=== PATIENT | male | born 1990 | race Caucasian/White ===

== ENCOUNTER 2021-01-27 23:55 | Emergency (ER) | payer OTHER, MEDICAID, SELFPAY ==
[2021-01-28] VITALS (7 sets, daily range): BP systolic 131–133; BP diastolic 81–82; PULSE 85–121; RESP 12–31; TEMP 36.6; O2SAT 95–99
--- NOTE | 2021-01-28 00:22 | ED_ITS ---
HPI - Overdose General Chief Complaint: Toxicology Problem Stated Complaint: OD si Time Seen by Provider: 01/28/21 00:01 History of Present Illness HPI Narrative: Patient is a 30-year-old male who presents as his heroin overdose. He apparently was found by a friend over past of grayish in color with large right forearm laceration. Patient was given 4 mg of intranasal Narcan by EMS and woke up. He denies any suicidal ideations. States that he has been sober for the last 3 months on Suboxone in a sober house. Currently here for work. Very thankful to be alive. States he relapsed earlier today by smoking care when in the decided to inject. He is very grateful to be alive. He does not remember how he cut himself. He does not remember the events of the evening he remembers shooting up and that was it. He used the same amount as he previously did. Related Data Previous Rx's Medication Instructions Recorded cephalexin 500 mg capsule 500 mg PO BID 7 Days #14 cap 01/28/21 Allergies Allergy/AdvReac Type Severity Reaction Status Date / Time No Known Drug Allergies Allergy Verified 01/28/21 02:05 Review of Systems Review of Systems Narrative: GENERAL: Denies chills, fatigue, malaise, fever, sweats, travel HEENT: Denies sinus pain, ear pain, sore throat, difficulty swallowing, neck pain RESPIRATORY: Denies dyspnea, cough, wheezing, hemoptysis, sputum. CARDIOVASCULAR: Denies chest pain, palpitations, orthopnea, edema GASTROINTESTINAL: Denies nausea, vomiting, abdominal pain, diarrhea, constipation, melena. : Denies dysuria, frequency, incontinence, hematuria, urinary retention, flank pain. MUSCULOSKELETAL: Denies weakness, joint pain, or bony pain SKIN: Laceration NEUROLOGIC: Denies weakness, dizziness, headache, numbness, change in speech, confusion PSYCHIATRIC: Overdose 12 point review of systems is negative except for those stated above and HPI Patient History Social History Smoking Status: Current every day smoker Smoking Status: Current every day smoker tobacco type: cigarettes Substance Use Type: heroin, IV drugs, methamphetamine and prescription drug Exam Initial Vital Signs Initial Vital Signs: Vital Signs Temperature 97.9 F 01/28/21 00:01 Pulse Rate 121 H 01/28/21 00:01 Respiratory Rate 24 01/28/21 00:01 Blood Pressure 133/82 01/28/21 00:01 Pulse Oximetry 96 01/28/21 00:01 GENERAL: Alert thankful 30-year-old male HEENT: Head atraumatic,EOMI, pupils reactive, face symmetric, moist mucous membranes CARDIOVASCULAR: Regular rate and rhythm without murmurs, rubs or gallops. RESPIRATORY: Breath sounds equal bilaterally, no wheezes rales or rhonchi. ABDOMEN: Soft, nontender. Normoactive bowel sounds all 4 quadrants. No gu arding or rebound. EXTREMITIES: Normal range of motion, no clubbing or edema. Neurovascularly intact Right upper extremity good pronation supination wrist flexion and extension neurovascularly intact NEUROLOGICAL: Alert and oriented x4.Normal gait and speech. SKIN: Right forearm laceration 8 cm through adipose tissue Procedures Laceration Repair Laceration 1: Size (cm): 8 Description: linear Depth: simple, single layer Local Anesthetic: lidocaine 1% and with epi Amount of anesthesia used (mL): 10 Pre-repair: wound explored, irrigated extensively and deep structures intact Skin layer closed with: nylon Size (cm): 4-0 Number of sutures: 9 Technique: simple, interrupted and horizontal mattress (2) Subcutaneous layer closed with: vicryl Size: 4-0 Number of sutures: 4 Technique: simple, interrupted Course Orders Ordered: ED Orders 01/28/21 00:04 Complete Blood Count AUTO DIFF Stat 01/28/21 00:49 Acetaminophen Stat Comprehensive Metabolic Panel Stat Ethanol (ETOH) Stat Salicylate Stat Discontinued Medications Bacitracin (Bacitracin Oint 0.9 Gm Pckt) 1 applic TOP NOW ONE Stop: 01/28/21 01:38 Last Admin: 01/28/21 01:41 Dose: 1 applic Documented by: BAKARI Cefazolin Sodium (Cephalexin 250 Mg Prepack) 1 bottle MISC SEEINSTR ONE Stop: 01/28/21 02:47 Last Admin: 01/28/21 03:00 Dose: 1 bottle Documented by: BAKARI Lidocaine HCl (Lidocaine 1% 20 Ml) 10 ml INJ NOW ONE Stop: 01/28/21 01:16 Last Admin: 01/28/21 02:25 Dose: Not Given Documented by: LISA Vital Signs Vital signs: Vital Signs - 8 hr 01/28/21 00:01 01/28/21 00:33 01/28/21 01:00 Temperature 97.9 F Pulse Rate 121 H 99 H 99 H Respiratory Rate 24 31 H 19 Blood Pressure 133/82 Pulse Oximetry 96 97 95 01/28/21 01:30 01/28/21 02:00 01/28/21 02:30 Temperature Pulse Rate 92 H 85 108 H Respiratory Rate 15 12 21 Blood Pressure Pulse Oximetry 98 99 97 01/28/21 03:00 Temperature Pulse Rate 102 H Respiratory Rate 20 Blood Pressure 131/81 Pulse Oximetry 95 MDM - Overdose Lab Data Result diagrams: 01/28/21 00:04 01/28/21 00:49 Labs: Lab Results 01/28/21 01/28/21 Range/Units 00:04 00:49 WBC 8.8 (4.5-11.0) X10^3/uL RBC 4.36 L (4.5-5.9) X10^6/uL Hgb 13.6 (13.5-17.5) g/dL Hct 39.1 L (41-53) % MCV 89.8 (80-100) fL MCH 31.3 (26-34) PG MCHC 34.9 (30-36) % RDW 12.7 (11.6-14.8) % Plt Count 372 (150-400) X10^3/uL Neut % (Auto) 36.8 L (50-75) % Lymph % (Auto) 49.5 H (25-40) % [place] % (Auto) 8.5 (3-14) % Eos % (Auto) 4.2 H (2-4) % Baso % (Auto) 1.0 (0-2) % Neut # (Auto) 3200 (5959-6213) /uL Lymph # (Auto) 4300 (9816-1322) /uL [place] # (Auto) 700 (0-900) /uL Eos # (Auto) 400 (0-450) /uL Baso # (Auto) 100 (0-100) /uL Sodium 140 (137-145) mmol/L Potassium 3.5 (3.4-5.1) mmol/L Chloride 104 (98-107) mmol/L Carbon Dioxide 27 (22-32) mmol/L BUN 16 (9-20) mg/dL Creatinine 1.12 (0.66-1.25) mg/dL Estimated GFR > 60.0 (>60) mL/min BUN/Creatinine Ratio 14.3 (6-22) Glucose 110 H (70-100) mg/dL Calcium 8.9 (8.4-10.2) mg/dL Total Bilirubin 0.3 (0.2-1.3) mg/dL AST 101 H (17-59) IU/L ALT 58 H (<50) IU/L Alkaline Phosphatase 58 (38-126) U/L Total Protein 6.9 (6.3-8.2) g/dL Albumin 4.3 (3.5-5.0) g/dL Globulin 2.6 (1.7-4.1) g/dL Albumin/Globulin Ratio 1.7 (1.0-2.8) Salicylates < 1.0 (<20) mg/dL Acetaminophen < 10 L (10-30) ug/mL Ethyl Alcohol 27 H ( - 10) mg/dL MDM Narrative Medical decision making narrative: The patient is monitored in the ED for 3 hours. No significant respiratory depression. Laceration is repaired easily. He is quite remorseful. Discharge Plan Departure Patient Disposition: Home Clinical Impression: Accidental heroin overdose, Laceration of right forearm Instructions: Substance Use Disorder, DI for Laceration Repair -- Complex Activity Restrictions/Additional Instructions: *You have been diagnosed with accidental heroin overdose, right forearm laceration *What to do: Have the sutures removed in about 7 days. Keep clean and dry with soap and water. You may apply Neosporin. Please continue Suboxone *Continue to take medications as directed Keflex 500 mg twice a day for 7 days *Follow up with your primary care provider in 2-3 days *Return to ER if you should have increased redness, pus, swelling, pain any new, worsening or concerning symptoms Prescriptions: New cephalexin 500 mg capsule 500 mg PO BID 7 Days Qty: 14 RF: 0
[2021-01-28 00:30] LABS: Add Manual Diff / Slide Review NO; Basophils Absolute Auto 100 /uL (0-100); Eosinophils Absolute Auto 400 /uL (0-450); Eosinophils Percent Auto 4.2 % (2-4); Hematocrit 39.1 % (41-53); Hemoglobin 13.6 g/dL (13.5-17.5); Lymphocytes Absolute Auto 4300 /uL (1100-4500); Lymphocytes Percent Auto 49.5 % (25-40); Mean Corpuscular HGB Conc 34.9 % (30-36); Mean Corpuscular Hemoglobin 31.3 PG (26-34); Mean Corpuscular Volume 89.8 fL (80-100); Monocytes Absolute Auto 700 /uL (0-900); Monocytes Percent Auto 8.5 % (3-14); Neutrophils Absolute Auto 3200 /uL (1500-7000); Neutrophils Percent Auto 36.8 % (50-75); Platelet Count 372 X10^3/uL (150-400); Red Blood Cell Count 4.36 X10^6/uL (4.5-5.9); Red Cell Distribution Width 12.7 % (11.6-14.8); White Blood Cell Count 8.8 X10^3/uL (4.5-11.0)
[2021-01-28 01:00] LABS: Acetaminophen < 10 ug/mL (10-30); Alanine Aminotransferase 58 IU/L (<50); Albumin 4.3 g/dL (3.5-5.0); Albumin Globulin Ratio 1.7 (1.0-2.8); Alkaline Phosphatase 58 U/L (38-126); Aspartate Aminotransferase 101 IU/L (17-59); BUN Creatinine Ratio 14.3 (6-22); Bilirubin Total 0.3 mg/dL (0.2-1.3); Blood Urea Nitrogen 16 mg/dL (9-20); Calcium 8.9 mg/dL (8.4-10.2); Carbon Dioxide 27 mmol/L (22-32); Chloride 104 mmol/L (98-107); Estimated Glomerular Filt Rate > 60.0 mL/min (>60); Ethanol (ETOH) 27 mg/dL; Globulin 2.6 g/dL (1.7-4.1); Glucose 110 mg/dL (70-100); HEMOLYSIS < 15 (0-50); Potassium 3.5 mmol/L (3.4-5.1); Salicylate < 1.0 mg/dL (<20); Sodium 140 mmol/L (137-145); Total Protein 6.9 g/dL (6.3-8.2)
--- NOTE | 2021-01-28 01:15 | PC.NURSE ---
placed on ETCO2--currently 42
[2021-01-28] MEDS: LIDOCAINE 1% W/EPI 30 ML (01:40)
[2021-01-28] MEDS: BACITRACIN OINT 0.9 GM PCKT 1 APPLIC TOP (01:41)
[2021-01-28] MEDS: cephALEXin 250 MG PREPACK 1 BOTTLE MISC (03:00)
--- NOTE | 2021-01-28 03:26 | PC.NURSE ---
after DR kwan did wound cleaning and suturing,I applied a sterile dressing with telfa,4 by 4's and kerlix.no active bleeding at site.
== END 2021-01-28 02:55 | disposition home or self-care (01) ==
PROVIDERS: Emergency Provider Emergency Medicine
DX: T40.1X1A Poisoning by heroin, accidental (unintentional), initial encounter (principal); S51.811A Laceration without foreign body of right forearm, initial encounter
CPT/HCPCS: 12004; 36415; 80053; 80320; 80329; 85025; 99283; G0480